=== PATIENT | female | born 1965 | race Caucasian/White ===

== ENCOUNTER 2021-05-31 05:30 | Day surgery (SDC) | payer MEDICAID, SELFPAY ==
[~2021-05-31] VITALS: Ht 160 cm; Wt 68.0 kg
[2021-05-31] MEDS ORDERED: MEPERIDINE 100 MG INJ. 100 MG/ML VIAL ONE (07:28)
[2021-05-31] MEDS ORDERED: SIMETHICONE 40 MG/0.6 ML ML ONE (07:28)
[2021-05-31] MEDS ORDERED: MIDAZOLAM HCL 5 MG/5 ML VIAL ONE (07:29)
[2021-05-31 07:47] LABS: HCG,QUAL RESULT NEGATIVE (NEGATIVE)
[2021-05-31 15:01] VITALS: BP_SYST 102
== END 2021-05-31 09:20 | disposition home or self-care (01) ==
LOC: SDS 05:30 → SMU 05:30 → SDS 09:20
PROVIDERS: ATTEND Internal Medicine Gastroenterology
DX: Z12.11 Encounter for screening for malignant neoplasm of colon (principal); K57.30 Diverticulosis of large intestine without perforation or abscess without bleeding; K64.8 Other hemorrhoids; Z79.899 Other long term (current) drug therapy; Z20.822 Contact with and (suspected) exposure to COVID-19
CPT/HCPCS: 36415; 45378; 84703; 87426; 99152; G0378; J2175; J2250; U0003